=== PATIENT | female | born 1950 | race Caucasian/White ===

== ENCOUNTER → 2023-10-03 | Outpatient (CLI) | payer OTHER, SELFPAY ==
--- NOTE | 2023-10-03 | DI.MRI.S_ITS ---
BREAST MRI OF BOTH BREASTS: 10/03/2023 CLINICAL: Left breast cancer. INDICATIONS: LEFT BREAST CANCER TECHNIQUE: The patient was placed prone in a dedicated breast imaging coil. Precontrast axial STIR and 3D FLASH without fat saturation sequences were obtained. Both before and after bolus injection of contrast, sequential 1-minute axial 3D FLASH with fat saturation sequences for 3 time points, with subtraction images and maximum intensity projections (MIP's) generated. Delayed sagittal FLASH images with fat saturation were also obtained. Computer-aided detection, including computer algorithm analysis of MRI image data for lesion detection and characterization, pharmacokinetic analysis, with further physician review for interpretation, was performed. COMPARISON: Mammograms 09/10/2023, 07/19/2023, 06/19/2023, 05/29/2023 FINDINGS: Image quality: Excellent. There is scattered amount of fibroglandular tissue. There is minimal and symmetric background parenchymal enhancement. Right breast: There is no suspicious enhancement or lymphadenopathy. Left breast: There is a heterogeneously enhancing irregular mass with irregular margins in the lower inner quadrant at middle depth, 7.9 centimeters from the nipple measuring 1.8 by 1.4 x 1.1 cm (AP by ML by SI, axial image 33, sagittal image 71). This corresponds to biopsy proven malignancy with biopsy clip at site. There is susceptibility artifact from prior benign and discordant biopsy clip in the lower outer quadrant. No suspicious lymphadenopathy. IMPRESSION: KNOWN BIOPSY PROVEN MALIGNANCY Left breast biopsy proven unifocal malignancy in the lower inner quadrant measuring up to 1.8 cm with biopsy clip at site. No suspicious lymphadenopathy. No MRI evidence of malignancy in the right breast. This exam was interpreted at Station ID: [id number]. Electronically Signed By: Rosio Grant M.D., PH.D eb/:10/07/2023 12:06:42 ACR BI-RADS Category 6: Known biopsy proven malignancy [id number]
== END ==
LOC: MRI 12:25
PROVIDERS: PCP Nurse Practitioner Acute Care; Referring Provider Surgery; Visit Provider Surgery
DX: C50.312 Malignant neoplasm of lower-inner quadrant of left female breast (principal)
CPT/HCPCS: 77049; A9579